=== PATIENT | female | born 1965 | race African-American/Black ===

== ENCOUNTER 2018-09-22 17:31 | Emergency (ER) | payer OTHER ==
[2018-09-22 17:39] VITALS: BP 118/64; PULSE 68; TEMP 98.2; BMI 31.6
[2018-09-22] MEDS ORDERED: IBUPROFEN 600 MG TABLET (FP) PO ONE ×2 (18:40→18:42)
--- NOTE | 2018-09-22 18:45 | PDOC ---
History of Present Illness - General Chief Complaint: Pain, Acute Stated Complaint: LEG PAIN Time Seen by Provider: 09/22/18 18:32 History Source: Patient - History of Present Illness Initial Comments: 09/22/18 18:45 53-year-old female complaining of right knee pain. Denies trauma/injury patient reports that she walks a lot. Denies calf pain denies shortness of breath denied nausea vomiting diarrhea abdominal pain. No redness or swelling noted at the knee. Patient denies that she took anything for pain. 09/22/18 18:46 Past History - Past Medical History Allergies/Adverse Reactions: Allergies Allergy/AdvReac Type Severity Reaction Status Date / Time No Known Allergies Allergy Verified 07/08/15 12:07 Home Medications: Ambulatory Orders Cyclobenzaprine HCl [Flexeril -] 10 mg PO Q8H PRN #21 tablet 07/08/15 Oxycodone HCl/Acetaminophen [Percocet 5/325 -] 1 tab PO Q6H PRN #8 tablet Ibuprofen 600 mg PO QID PRN #20 tablet 09/22/18 COPD: No Dialysis: No Hypercholesterolemia: No - Surgical History Gastric Stapling: No - Immunization History Immunization Up to Date: Yes - Suicide/Smoking/Psychosocial Hx Smoking History: Never smoked Have you smoked in the past 12 months: No Information on smoking cessation initiated: No Hx Alcohol Use: No Drug/Substance Use Hx: No Review of Systems - Review of Systems Able to Perform ROS?: Yes Is the patient limited [place] Islander proficient: No Musculoskeletal: Yes: Other (knee pain) *Physical Exam - Vital Signs Last Vital Signs Temp Pulse Resp BP Pulse Ox 98.2 F 68 16 118/64 100 09/22/18 17:37 09/22/18 17:37 09/22/18 17:37 09/22/18 17:37 09/22/18 17:37 - Physical Exam General Appearance: Yes: Appropriately Dressed Respiratory/Chest: positive: Lungs Clear, Normal Breath Sounds Extremity: positive: Normal Capillary Refill, Normal Inspection, Normal Range of Motion, Other (able to leg raise.) Progress Note - Progress Note Progress Note: A: Knee pain P: X-ray NSAIDs *DC/Admit/Observation/Transfer Diagnosis at time of Disposition: Knee pain, right Qualifiers: Chronicity: acute Qualified Code(s): M25.561 - Pain in right knee - Discharge Dispostion Condition at time of disposition: Stable - Prescriptions Prescriptions: Ibuprofen 600 mg PO QID PRN #20 tablet PRN Reason: Fever - Referrals Referrals: Dave Francis MD [Primary Care Provider] - Ananda Thomas DO [Staff Physician] - Call tomorrow Rc Lei MD [Staff Physician] - Call tomorrow - Patient Instructions Printed Discharge Instructions: DI for Knee Pain Additional Instructions: you may take ibuprofen for pain. elevate and ICE the knee follow up with orthopedic doctor. call tomorrow for an appointment. - Post Discharge Activity Forms/Work/School Notes: Back to Work
== END 2018-09-22 19:53 | disposition home or self-care (01) ==
LOC: JERFT 17:31
DX: M25.561 Pain in right knee (principal)
CPT/HCPCS: 73562-TC-RT-FY; 99281-25

== ENCOUNTER 2018-11-14 18:25 | Emergency (ER) | payer OTHER | END 2018-11-14 23:06 | disposition home or self-care (01) | LOC: JER 18:25 ==

== ENCOUNTER 2018-11-18 17:35 | Emergency (ER) | payer OTHER ==
[2018-11-18 18:07] VITALS: TEMP 97.8; BMI 31.6
--- NOTE | 2018-11-18 18:09 | PDOC ---
Rapid Medical Evaluation Time Seen by Provider: 11/18/18 18:02 Medical Evaluation: Allergies Allergy/AdvReac Type Severity Reaction Status Date / Time No Known Allergies Allergy Verified 11/18/18 18:04 11/18/18 18:04 Patient complaints of: left sided headache w/ dizziness, here a few days ago w chest pain Patient on brief exam: vss, eomi Patient ordered for: ua, ucx (recent dx of uti) Patient to proceed to the ED Discharge Disposition - Diagnosis Vertigo - Discharge Dispostion Disposition: HOME Condition at time of disposition: Improved - Prescriptions Prescriptions: Meclizine HCl [Antivert -] 25 mg PO QID #28 tablet - Referrals Referrals: Dave Francis MD [Primary Care Provider] - - Patient Instructions Additional Instructions: Keep well-hydrated. Continue antibiotic's previously prescribed. Eat a well-balanced diet Take meclizine 25 mg 4 times a day as needed for dizziness. Follow-up with her primary doctor within the next 7 days for reevaluation. Return to the emergency department for any new or worsening symptoms. Thank you very much for choosing us to provide your emergent health care needs. - Post Discharge Activity
[2018-11-18] MEDS ORDERED: SODIUM CHLORIDE 1,000 ML IV STA (20:00)
[2018-11-18] MEDS ORDERED: MECLIZINE HCL 25 MG TABLET (FP) PO ONE (20:01)
--- NOTE | 2018-11-18 20:05 | PDOC ---
History of Present Illness - General Chief Complaint: Headache Stated Complaint: SHARP PAIN Time Seen by Provider: 11/18/18 18:02 History Source: Patient, Old Records Exam Limitations: No Limitations - History of Present Illness Initial Comments: 11/18/18 20:01 HISTORY OF PRESENT ILLNESS: This a 53-year-old woman and denies medical history presents emergency department for evaluation of sudden onset left-sided headache and dizziness. Patient reports headache started on the left side of her head which she describes as a "dripping fluid" sensation. She reports the pain is encompassing the left side of her head from the frontal bone to the occiput. She reports having intermittent nausea but has not vomited. Patient states the dizziness she experiences has a motion component. Patient reports she went to her vehicle to go home which began to express the dizziness again. Spontaneously resolve after a few seconds which prompted patient come to the emergency department for evaluation. Patient denies any chest pain, shortness of breath, sore throat, fevers, chills, abdominal pain, dysuria, hematuria, diarrhea. No recent travel or sick contacts. PAST MEDICAL HISTORY: Denies past medical history SURGICAL HISTORY: Denies ALLERGIES: No known drug allergies REVIEW OF SYSTEMS General/Constitutional: Denies fever or chills. Denies weakness, weight change. HEENT: Denies change in vision. Denies ear pain or discharge. Denies sore throat. Cardiovascular: Denies chest pain or shortness of breath. Respiratory: Denies cough, wheezing, or hemoptysis. Gastrointestinal: Denies nausea, vomiting, diarrhea or constipation. Denies rectal bleeding. Genitourinary: Denies dysuria, frequency, or change in urination. Musculoskeletal: Denies joint or muscle swelling or pain. Denies neck or back pain. Skin and breasts: Denies rash or easy bruising. Neurologic: see HPI Psychiatric: Denies depression or anxiety. Endocrine: Denies increased thirst. Denies abnormal weight change. Hematologic/Lymphatic: Denies anemia, easy bleeding, or history of blood clots. Allergic/Immunologic: Denies hives or skin allergy. Denies latex allergy. PHYSICAL EXAM General Appearance: Well-appearing, appropriately dressed. No apparent distress , no intoxication. HEENT: EOMI, PERRLA, normal ENT inspection, normal voice. No conjunctival pallor. No photophobia, scleral icterus. Oropharynx mildly erythematous without tonsillar exudate present. TMs opaque and retracted with read streaks bilaterally. Neck: Supple. Trachea midline. No tenderness, rigidity, carotid bruit, stridor , lymphadenopathy, or thyromegaly. Respiratory/Chest: Lungs CTAB. No shortness of breath, chest tenderness, respiratory distress, accessory muscle use. No crackles, rales, rhonchi, stridor , wheezing, dullness Cardiovascular: RRR. S1, S2. No JVD, murmur, bradycardia, tachycardia. Vascular Pulses: Dorsalis-Pedis (R): 2+, Dorsalis-Pedis (L): 2+ Gastrointestinal/Abdominal: Normal bowel sounds. Abdomen soft, non-distended. No tenderness or rebound tenderness. No organomegaly, pulsatile mass, guarding, hernia, hepatomegaly, splenomegaly. Lymphatic: No adenopathy, tenderness. Musculoskeletal/Extremities: Normal inspection. FROM of all extremities, normal capillary refill. Pelvis Stable. No CVA tenderness. No tenderness to extremities, pedal edema, swelling, erythema or deformity. Integumentary: Appropriate color, dry, warm. No cyanosis, erythema, jaundice or rash Neurologic: steam pipe fitter II-XII intact. Fully oriented, alert. Appropriate mood/affect. Motor strength 5/5. No appreciable EOM palsy, facial droop or sensory deficit. Positive Romberg sign. Negative Jose-Hallpike. Ambulatory with steady gait. Past History - Past Medical History Allergies/Adverse Reactions: Allergies Allergy/AdvReac Type Severity Reaction Status Date / Time No Known Allergies Allergy Verified 11/18/18 18:04 Home Medications: Ambulatory Orders Cephalexin Monohydrate [Keflex -] 500 mg PO BID #14 capsule 11/15/18 Meclizine HCl [Antivert -] 25 mg PO QID #28 tablet 11/18/18 COPD: No Dialysis: No Hypercholesterolemia: No - Surgical History Gastric Stapling: No - Immunization History Immunization Up to Date: Yes - Suicide/Smoking/Psychosocial Hx Smoking History: Never smoked Have you smoked in the past 12 months: No Information on smoking cessation initiated: No Hx Alcohol Use: No Drug/Substance Use Hx: No *Physical Exam - Vital Signs Last Vital Signs Temp Pulse Resp BP Pulse Ox 97.8 F 67 17 146/70 99 11/18/18 18:04 11/18/18 18:04 11/18/18 18:04 11/18/18 18:04 11/18/18 18:04 Heart Score/ECG Review - History History: Slightly suspicious - Electrocardiogram EKG: Normal - Age Age: 45-65 - Risk Factors Based on the list above the patient has:: No risk factors known - Troponin Troponin: </= normal limit - Score Heart Score - Total: 1 - ECG Intrepretation Rhythm: Regular Rhythm - Jenkinjones Jenkinjones: Normal ED Treatment Course - LABORATORY CBC & Chemistry Diagram: 11/18/18 20:30 11/18/18 20:30 Medical Decision Making - Medical Decision Making 11/18/18 20:05 A/P: 53-year-old woman with sudden onset left-sided headache and dizziness for 3 hours Physical exam this is likely inner ear infection causing vertiginous symptoms. Given the patient's age I will go head CT to rule out ICH or mass, cardiac profile to rule out's ACS, EKG to evaluate for arrhythmia, basic labs to rule out anemia or left light abnormality. 11/18/18 22:38 CT of the head as read by Dr. Rivers: Normal CT scan of the head with no evidence of acute intracranial pathology. Chest x-rays read by me: No discrete infiltrate, pleural effusion or pneumothorax is seen. Cardiac silhouette is within normal limits. No significant change from study performed 03/23/11. CBC is unremarkable Coagulation profile is unremarkable Chemistries notable for CK of 366. Troponin is less than 0.02. CK-MB 2.2 which is within normal limits. Urinalysis reveals 1+ leuk esterase probably 7 WBCs under high-power field. Likely not infectious in nature Patient feels better after receiving meclizine and fluids. Likely vertigo. We' ll discharge patient home to follow-up with her primary doctor for continued evaluation. 11/18/18 23:00 EKG is reviewed by me and interpreted by Dr. Rai: Sinus bradycardia with rate of 56. Normal intervals present. Normal axis. No ischemic changes noted. No significant change from study performed 11/14/18. I discussed the physical exam findings, ancillary test results and final diagnoses with the patient. I answered all of the patient's questions. The patient was satisfied with the care received and felt comfortable with the discharge plan and treatment plan. The patient will call their primary care physician within 24 hours to arrange follow-up and will return to the Emergency Department with any new, persistent or worsening symptoms. *DC/Admit/Observation/Transfer Diagnosis at time of Disposition: Vertigo - Discharge Dispostion Disposition: HOME Condition at time of disposition: Improved Decision to Admit order: No - Prescriptions Prescriptions: Meclizine HCl [Antivert -] 25 mg PO QID #28 tablet - Referrals Referrals: Dave Francis MD [Primary Care Provider] - - Patient Instructions Additional Instructions: Keep well-hydrated. Continue antibiotic's previously prescribed. Eat a well-balanced diet Take meclizine 25 mg 4 times a day as needed for dizziness. Follow-up with her primary doctor within the next 7 days for reevaluation. Return to the emergency department for any new or worsening symptoms. Thank you very much for choosing us to provide your emergent health care needs. - Post Discharge Activity
[2018-11-18] MEDS ORDERED: MECLIZINE HCL 25 MG TABLET (FP) ONE (20:20)
[2018-11-18 20:43] LABS: EPI CELLS 2.2 /HPF (0-5/HPF); HYALINE CASTS 0 /lpf (0-8); PH,URINE 7.5 (5.0-8.0); URINE APPEARANCE CLEAR; URINE BACTERIA 7.3 /hpf (NEGATIVE); URINE BILIRUBIN NEGATIVE (NEGATIVE); URINE COLOR YELLOW; URINE GLUCOSE (UA) NEGATIVE (NEGATIVE); URINE KETONE NEGATIVE (NEGATIVE); URINE LEUK ESTERASE 1+ (NEGATIVE); URINE NITRITE NEGATIVE (NEGATIVE); URINE PROTEIN NEGATIVE (NEGATIVE); URINE RBC 2 /hpf (0-4); URINE UROBILINOGEN 0.2 mg/dL (0.2-1.0); URINE WBC 7 /hpf (0-5)
[2018-11-18 21:06] LABS: BASO % 1.2 % (0-2.0); EOS % 1.2 % (0-4.5); HEMATOCRIT 36.7 % (32.4-45.2); HEMOGLOBIN 12.3 GM/dL (10.7-15.3); LYMPH % 55.1 % (8-40); MCH 27.7 pg (25.7-33.7); MCHC 33.6 g/dl (32.0-36.0); MEAN CELL VOLUME 82.2 fl (80-96); MEAN PLT VOLUME 8.3 fl (7.5-11.1); MONO % 8.7 % (3.8-10.2); NEUT % 33.8 % (42.8-82.8); PLATELET COUNT 317 K/MM3 (134-434); RBC 4.46 M/mm3 (3.60-5.2); RDW 13.1 % (11.6-15.6); WHITE BLOOD COUNT 4.6 K/mm3 (4.0-10.0)
[2018-11-18 21:22] LABS: INR 1.03 (0.83-1.09); PROTHROMBIN TIME (PATIENT) 12.2 SEC (9.7-13.0)
[2018-11-18 21:53] LABS: ALBUMIN 3.9 g/dl (3.4-5.0); ALK PHOS 81 U/L (45-117); ANION GAP 5 MMOL/L (8-16); BILIRUBIN,TOTAL 0.4 mg/dL (0.2-1); CHLORIDE 105 mmol/L (98-107); CO2 29 mmol/L (21-32); CREATININE 0.9 mg/dL (0.55-1.3); GLUCOSE,RANDOM 78 mg/dL (74-106); SGOT/AST 52 U/L (15-37); SGPT/ALT 41 U/L (13-61); SODIUM 139 mmol/L (136-145); TOT PROT 7.5 g/dl (6.4-8.2)
[2018-11-18 23:36] VITALS: BP 147/75; PULSE 70
--- NOTE | 2018-11-20 17:08 | EKG ---
Test Reason : Blood Pressure : / mmHG Vent. Rate : 056 BPM Atrial Rate : 056 BPM P-R Int : 160 ms QRS Dur : 084 ms QT Int : 468 ms P-R-T Axes : 056 039 039 degrees QTc Int : 451 ms SINUS BRADYCARDIA OTHERWISE NORMAL ECG WHEN COMPARED WITH ECG OF 14-NOV-2018 18:21, NO SIGNIFICANT CHANGE WAS FOUND Confirmed by MD ALFA, PATRICIA ([id number]) on 11/20/2018 5:07:59 PM Referred By: Confirmed By:PATRICIA GRIMM MD
== END 2018-11-18 23:36 | disposition home or self-care (01) ==
LOC: JER 17:35
PROC: 3E0337Z Introduction of Electrolytic and Water Balance Substance into Peripheral Vein, Percutaneous Approach (ICD-10-PCS; principal; 2018-11-18)
DX: R42 Dizziness and giddiness (principal)
CPT/HCPCS: 36415; 70450-TC; 71046-TC-FY; 80053; 81003; 82550; 82553; 83735; 84484; 85025; 85610; 87086; 93005; 93010; 96360; 99283-25; J7030

== ENCOUNTER → 2019-03-20 | Day surgery (SDC) | payer OTHER ==
--- NOTE | 2019-03-23 10:26 | PATH ---
Cytology Non-Gynecological Report Patient Name: DIDI FONG [facility]. Rec. #: [id number] /Age/Gender: 1965 (Age: 54) / F Account: [id number] Location: [facility] Taken: 03/20/2019 Received: 03/21/2019 Reported: 03/23/2019 Physicians: Ade Jimenez M.D. Specimen(s) Received BREAST, LEFT, CYST, FINE NEEDLE ASPIRATION Clinical History Cyst, 0.6 cm, left breast, aspirated with complete appearance Final Diagnosis BREAST, LEFT, CYST, FINE NEEDLE ASPIRATION: SATISFACTORY FOR EVALUATION. NO MALIGNANT CELLS IDENTIFIED. PROTEINACEOS DEBRIS AND DEGENERATED CELLS CONSISTENT WITH CYST CONTENTS. Electronically Signed Neva Castaneda M.D. Gross Description Approximately 20 cc of clear fluid received fixed in 50% alcohol. One cytofunnel prepared and Pap stained.
== END | disposition home or self-care (01) ==
LOC: JMAMMO-SUR 11:46
PROVIDERS: ATTEND Family Medicine Geriatric Medicine
PROC: BH41ZZZ Ultrasonography of Left Breast (ICD-10-PCS; principal; 2019-03-20)
PROC: 0H9U3ZX Drainage of Left Breast, Percutaneous Approach, Diagnostic (ICD-10-PCS; 2019-03-20)
DX: N60.02 Solitary cyst of left breast (principal)
CPT/HCPCS: 76942; 77065-TC; G0279-TC

== ENCOUNTER 2020-02-12 13:37 | Emergency (ER) | payer OTHER ==
[2020-02-12] MEDS ORDERED: IBUPROFEN 600 MG TABLET (FP) PO ONE ×2 (13:48→13:58)
[2020-02-12] MEDS ORDERED: diazePAM 5 MG TABLET PO ONE (13:48)
[2020-02-12 13:52] VITALS: BMI 31.1
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
[2020-02-12] MEDS ORDERED: diazePAM 5 MG TABLET ONE (13:59)
[2020-02-12] MEDS ORDERED: METHOCARBAMOL 500 MG TABLET PO ONE (14:10)
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
[2020-02-12] MEDS ORDERED: METHOCARBAMOL 500 MG TABLET ONE (14:50)
[2020-02-12 15:17] VITALS: BP 140/84; PULSE 86; TEMP 98.7
== END 2020-02-12 15:16 | disposition home or self-care (01) ==
LOC: JER 13:37
DX: S50.12XA Contusion of left forearm, initial encounter (principal); S80.01XA Contusion of right knee, initial encounter
CPT/HCPCS: 73070-TC-LT-FY; 73090-TC-LT-FY; 73562-TC-RT-FY; 99285-25